=== PATIENT | female | born 1990 | race Caucasian/White ===

== ENCOUNTER 2020-04-16 04:09 | Inpatient (IN) ==
[2020-04-16] MEDS ORDERED: OXYTOCIN 30 UNITS/500 ML BAG IV PRN ×3 (04:59→15:54)
[2020-04-16 05:15] LABS: Hematocrit (blood only) 40.6 % (37-47); Hemoglobin 13.7 g/dL (12.0-16.0); Mean Corpuscular Hemoglobin 28.9 pg (25-34); Mean Corpuscular Volume 85.7 fL (80-100); Mean Platelet Volume 11.3 fL (7.4-10.4); Platelet Count 190 K/uL (130-400); RDW Coefficient of Variation 14.1 % (11.5-14.5); RDW Standard Deviation 43.8 fL (36.4-46.3); Red Blood Count 4.74 M/uL (4.2-5.4); White Blood Count 9.08 K/uL (4.8-10.8)
[2020-04-16 05:42] LABS: Mean Corpuscular Hgb Conc 33.7 g/dL (32-36)
--- NOTE | 2020-04-16 09:56 | Obstetrical Progress Note ---
Date of Service April 16, 2020 Assessment & Plan Admission and Anticipated Discharge Date Admission Date: April 16, 2020 Physical Exam Genitourinary: no vaginal lesions, no adnexal mass normal external appearance OB Exam Abdomen: + vertex, + estimated weight and + irregu lar contractions Manual OB Exam: + cervical dilation 4 cm and + cervical effacement 70% OB Exam Monitor Tracing: + external FHT monitor used, + category I and + normal FHT variability Irregular contractions will start Oxytocin Results & Data ([facility]) Vital Signs (Past 12 Hours) Vital Signs Temp Pulse Resp BP 04/16/20 07:44 36.9 C 04/16/20 07:32 72 123/87 04/16/20 04:35 36.8 C 04/16/20 04:29 74 131/75
[2020-04-16] MEDS: LACTATED RINGER'S 1,000 ML IV PRN ×2 (10:27→11:56)
[2020-04-16] MEDS ORDERED: ePHEDrine sulfate 50 MG/ML AMP ONE (10:57)
[2020-04-16] MEDS ORDERED: fentaNYL citrate 100 MCG/2 ML VIAL ONE (10:58)
[2020-04-16] MEDS ORDERED: BUPIVACAINE 0.25% 30 ML VIAL ONE (10:58)
[2020-04-16] MEDS ORDERED: fentaNYL 2MCG/ML ROPIV 1.25MG/ML 100 ML BAG EPI ONE (10:58)
--- NOTE | 2020-04-16 11:50 | Anesthesiology Consultation ---
Date of Service April 16, 2020 Assessment & Plan Chart Review Chart Review: Acceptable Risk for Surgery, Patient NOT seen in Pre Admission Testing and Acceptable Risk for Labor Epidural Consults Requested none ASA ASA2 Proposed Anesthesia Anesthesia Type: Labor Epidural and CSE Risk / Benefits Reviewed With: PT / POA / Parent / Guardian, Accepts Plan and Informed Consent Obtained History Height/Weight Height: 5 ft 2 in Weight: 71.668 kg Allergies Allergy/AdvReac Type Severity Reaction Status Date / Time No Known Allergies Allergy Verified 04/16/20 04:34 Medications Home Medications Medication Instructions Recorded Confirmed Last Taken PNV [id number]#[id number] fumarate-FA 1 tab PO DAILY 06/12/19 04/16/20 04/15/20 [] Active Medications Generic Name Dose Route Start Last Admin Trade Name Freq PRN Reason Stop Dose Admin Lactated Ringer's 1,000 mls @ 125 mls/hr 04/16/20 04:59 04/16/20 11:07 Lr IV 04/18/20 04:58 999 mls/hr .Q8H PRN Infusion L&D Protocol Protocol Oxytocin 30 units in 500 mls @ 2 mls/hr 04/16/20 10:20 04/16/20 11:20 Pitocin IV 04/18/20 10:19 0.12 units/hr .Q24H PRN 2 mls/hr Labor Induction/Augmentation Titration Protocol 0.12 UNITS/HR NPO Date Last Intake of Fluids: 04/16/20 Time Last Intake of Fluids: 10:00 Date Last Intake of Solids: 04/15/20 Time Last Intake of Solids: 18:00 Past Medical History Medical History Delivery of twins, both live Vaginal delivery Exercise / Class Metabolic Activity II 4-5 Yardwork/Stairs/Walk up hill Past Surgical History Surgical History Hx of tonsillectomy Past Anesthesia History No Hx of Anesthesia Complications and No Family Hx of Anesthesia Complications History of PONV No Hx of PONV and No Hx of Motion Sickness Social History Smoking Status: Never smoker Hx Alcohol Use: No Hx Substance Use: No substance use type: does not use Physical Exam Vital Signs Last Vital Signs Temp 36.9 C 04/16/20 07:44 Pulse 70 04/16/20 11:27 Resp 16 04/16/20 07:44 BP 120/74 04/16/20 11:27 Constitutional + obese ENMT Mouth: no dentition abnormality Thyromental Distance: < 3.5 Finger Breadths Mallampati Class: II Neck normal visual inspection and trachea midline; neck extension not limited Respiratory normal respiratory effort Auscultation: lungs clear to auscultation bilaterally Cardiovascular Rate/Rhythm: regular rate and regular rhythm Heart Sounds: no murmur Vessels: no carotid bruit Musculoskeletal Spine: lumbar spine normal to inspection; normal cervical ROM Neurologic moves all extremities Motor/Sensory: no sensory deficit Psychiatric Orientation: alert and oriented x 3 Testing Laboratory Results 04/16/20 05:08
[2020-04-16] MEDS ORDERED: ePHEDrine sulfate 50 MG/ML AMP IV PRN (12:13)
[2020-04-16] MEDS ORDERED: fentaNYL 2MCG/ML ROPIV 1.25MG/ML 100 ML BAG EPI PRN (12:13)
[2020-04-16] MEDS ORDERED: ONDANSETRON INJ 2 MG/ML 2 ML VIAL IV PRN (12:13)
[2020-04-16] MEDS ORDERED: NALOXONE HCL 1 MG in SODIUM CHLORIDE 0.9% 1000ML 1,000 ML IV PRN (12:13)
[2020-04-16] MEDS ORDERED: PROMETHAZINE HCL 25 MG in SODIUM CHLORIDE 0.9% 50 ML IV PRN (12:13)
[2020-04-16] MEDS ORDERED: NALOXONE HCL 0.4 MG/1 ML VIAL/CARP IV PRN (12:13)
[2020-04-16] MEDS ORDERED: DiphenhydrAMINE HCL 50 MG/ML VIAL IV PRN (12:13)
--- NOTE | 2020-04-16 13:02 | Obstetrical Progress Note ---
Date of Service April 16, 2020 Assessment & Plan Admission and Anticipated Discharge Date Admission Date: April 16, 2020 Physical Exam Genitourinary: Manual OB Exam: + cervical dilation 6 cm, + cervical effacement 80%, + station -2 and + amniotic fluid (AROM with Amni-hook clear fluid) clear OB Exam Monitor Tracing: + external FHT monitor used, + category I and + normal FHT variability Results & Data ([facility]) Vital Signs (Past 12 Hours) Vital Signs Temp Pulse Resp BP Pulse Ox 04/16/20 12:56 65 100 04/16/20 12:54 63 111/69 04/16/20 12:51 62 117/78 100 04/16/20 12:46 49 L 99 04/16/20 12:44 63 114/75 04/16/20 12:41 55 L 99 04/16/20 12:39 59 L 111/71 04/16/20 12:36 68 98 04/16/20 12:33 59 L 116/73 04/16/20 12:31 56 L 120/72 100 04/16/20 12:29 57 L 113/68 04/16/20 12:27 63 114/69 04/16/20 12:26 64 100 04/16/20 12:25 59 L 111/63 04/16/20 12:23 64 113/68 04/16/20 12:21 57 L 116/68 99 04/16/20 12:19 63 117/72 04/16/20 12:17 65 115/74 04/16/20 12:16 64 99 04/16/20 12:15 74 126/83 04/16/20 12:13 64 113/62 04/16/20 12:11 63 119/66 98 04/16/20 12:09 73 115/73 04/16/20 12:07 71 128/77 04/16/20 12:06 69 99 04/16/20 12:01 63 100 04/16/20 11:56 74 100 04/16/20 11:51 78 100 04/16/20 11:27 70 120/74 04/16/20 10:27 69 119/74 04/16/20 07:44 36.9 C 16 04/16/20 07:32 72 123/87 04/16/20 04:35 36.8 C 16 04/16/20 04:29 74 131/75
--- NOTE | 2020-04-16 15:01 | Obstetrical Progress Note ---
Date of Service April 16, 2020 Assessment & Plan Admission and Anticipated Discharge Date Admission Date: April 16, 2020 Physical Exam Genitourinary: Manual OB Exam: + cervical dilation 10 cm, + cervical effacement 100%, + station 0 and + amniotic fluid clear OB Exam Monitor Tracing: + external FHT monitor used, + external uterine monitor used, + category I and + normal FHT variability will start to push Results & Data ([facility]) Vital Signs (Past 12 Hours) Vital Signs Temp Pulse Resp BP Pulse Ox 04/16/20 14:56 61 100 04/16/20 14:51 55 L 100 04/16/20 14:47 61 115/62 04/16/20 14:46 57 L 100 04/16/20 14:41 66 99 04/16/20 14:36 59 L 100 04/16/20 14:31 69 116/63 100 04/16/20 14:26 60 100 04/16/20 14:21 65 100 04/16/20 14:16 58 L 113/62 99 04/16/20 14:11 61 99 04/16/20 14:06 60 99 04/16/20 14:01 53 L 100 04/16/20 14:00 16 04/16/20 13:59 57 L 106/60 04/16/20 13:56 56 L 99 04/16/20 13:54 60 109/64 04/16/20 13:51 61 100 04/16/20 13:50 60 119/67 04/16/20 13:46 54 L 100 04/16/20 13:44 73 113/66 04/16/20 13:41 58 L 115/64 99 04/16/20 13:36 54 L 99 04/16/20 13:35 52 L 122/67 04/16/20 13:31 57 L 99 04/16/20 13:29 56 L 118/62 04/16/20 13:26 55 L 100 04/16/20 13:24 51 L 117/60 04/16/20 13:21 57 L 120/59 L 100 04/16/20 13:16 54 L 100 04/16/20 13:15 53 L 16 117/72 04/16/20 13:11 55 L 100 04/16/20 13:09 54 L 120/68 04/16/20 13:06 58 L 100 04/16/20 13:05 52 L 116/65 04/16/20 13:01 61 120/67 99 04/16/20 13:00 37.0 C 16 04/16/20 12:56 65 100 04/16/20 12:54 63 111/69 04/16/20 12:51 62 117/78 100 04/16/20 12:46 49 L 99 04/16/20 12:45 16 04/16/20 12:44 63 114/75 04/16/20 12:41 55 L 99 04/16/20 12:39 59 L 111/71 04/16/20 12:36 68 98 04/16/20 12:33 59 L 116/73 04/16/20 12:31 56 L 120/72 100 04/16/20 12:30 18 04/16/20 12:29 57 L 113/68 04/16/20 12:27 63 114/69 04/16/20 12:26 64 100 04/16/20 12:25 59 L 111/63 04/16/20 12:23 64 113/68 04/16/20 12:21 57 L 116/68 99 04/16/20 12:19 63 117/72 04/16/20 12:17 65 115/74 04/16/20 12:16 64 99 04/16/20 12:15 74 16 126/83 04/16/20 12:13 64 113/62 04/16/20 12:11 63 119/66 98 04/16/20 12:09 73 115/73 04/16/20 12:07 71 128/77 04/16/20 12:06 69 99 04/16/20 12:01 63 100 04/16/20 11:56 74 100 04/16/20 11:51 78 100 04/16/20 11:27 70 120/74 04/16/20 11:11 36.9 C 04/16/20 10:27 69 119/74 04/16/20 07:44 36.9 C 16 04/16/20 07:32 72 123/87 04/16/20 04:35 36.8 C 16 04/16/20 04:29 74 131/75
--- NOTE | 2020-04-16 15:27 | Delivery Summary ---
Vaginal Delivery Summary Date of Service April 16, 2020 Vaginal Delivery Summary Delivery Note live female over intact perineum with delayed cord clamping and nuchal cord x1 reduced at delivery. Apgars 8/9 weight pending. Cord blood obtained followed by spontaneous delivery of intact placenta. No tears. EBL 200 ml. Final sponge and instrument count are correct. Mom and baby stable.
[2020-04-16] MEDS ORDERED: DIPHTHERIA/TETANUS/PERTUSSIS 0.5 ML SYR/VIAL IM ONE (15:54)
[2020-04-16] MEDS ORDERED: HYDROCORTISONE ACETATE 25 MG SUPP PR PRN (15:54)
[2020-04-16] MEDS ORDERED: SUPERCREAM 0.870% 15 GM JAR EXT PRN (15:54)
[2020-04-16] MEDS ORDERED: bisacodyL 10 MG SUPP PR PRN (15:54)
[2020-04-16] MEDS ORDERED: ACETAMINOPHEN 325 MG TAB PO PRN (15:54)
[2020-04-16] MEDS ORDERED: BENZOCAINE 20% AER SPR 82.5 GM CAN EXT PRN (15:54)
--- NOTE | 2020-04-16 16:53 | Anesthesia Procedure Note ---
Date of Service April 16, 2020 Anesthesia Post Epidural Note Vital Signs Vital Signs: Temp Pulse Resp BP Pulse Ox 37.0 C 75 16 113/64 100 04/16/20 15:01 04/16/20 16:50 04/16/20 15:01 04/16/20 16:50 04/16/20 15:11 Pain Intensity Bilateral Abdomen: Pain Intensity: 5 Notes Mental Status: alert / awake / arousable Nausea / Vomiting: adequately controlled Pain: adequately controlled Airway Patency, RR, SpO2: stable & adequate BP & HR: stable & adequate Hydration State: stable & adequate Neuraxial Anesthesia: was administered and sensory block is resolving Anesthetic Complications: no major complications apparent Epidural: Removed without complications and With tip intact
[2020-04-16] MEDS: IBUPROFEN 600 MG TAB PO PRN ×2 (18:22→21:50)
[2020-04-16] MEDS: DOCUSATE SODIUM 100 MG CAP PO SCH (21:50)
[2020-04-17] MEDS: IBUPROFEN 600 MG TAB PO PRN ×3 (03:31→12:22)
[2020-04-17 07:14] LABS: Hematocrit (blood only) 37.7 % (37-47); Hemoglobin 12.7 g/dL (12.0-16.0); Mean Corpuscular Hemoglobin 28.3 pg (25-34); Mean Corpuscular Hgb Conc 33.7 g/dL (32-36); Mean Corpuscular Volume 84.2 fL (80-100); Mean Platelet Volume 10.9 fL (7.4-10.4); Platelet Count 162 K/uL (130-400); RDW Coefficient of Variation 14.2 % (11.5-14.5); RDW Standard Deviation 43.7 fL (36.4-46.3); Red Blood Count 4.48 M/uL (4.2-5.4); White Blood Count 11.06 K/uL (4.8-10.8)
[2020-04-17] MEDS ORDERED: PRENATAL VITAMIN 1 TAB PO SCH (08:00)
[2020-04-17] MEDS: DOCUSATE SODIUM 100 MG CAP PO SCH (08:21)
[2020-04-17] MEDS ORDERED: NON-FORMULARY MEDICATION (Pnv Cmb#95-Ferrous Fumarate-Fa [Prenatal] 1 TAB) PO SCH (09:00)
--- NOTE | 2020-04-17 10:57 | Obstetrical Progress Note ---
Date of Service April 17, 2020 Assessment & Plan Admission and Anticipated Discharge Date Admission Date: April 16, 2020 Subjective Patient is seen and examined. She feels well, no complaints. Ambulating without dizziness Voiding without difficulty Tolerating regular diet with out N&V Bleeding is minimal No fever/ chills/ CP/ SOB/ N&V/ Leg pain Breast feeding without problems Vital Signs Temp Pulse Resp BP Pulse Ox 04/17/20 07:55 37 C 66 18 125/84 97 04/17/20 03:40 36.8 C 69 18 120/79 98 04/16/20 23:20 36.9 C 72 18 108/64 97 Lab Results 04/16/20 04/17/20 Range/Units 05:08 07:02 WBC 9.08 11.06 H (4.8-10.8) K/uL RBC 4.74 4.48 (4.2-5.4) M/uL Hgb 13.7 12.7 (12.0-16.0) g/dL Hct 40.6 37.7 (37-47) % MCV 85.7 84.2 (80-100) fL MCH 28.9 28.3 (25-34) pg MCHC 33.7 33.7 (32-36) g/dL RDW Std Deviation 43.8 43.7 (36.4-46.3) fL RDW Coeff of Jessica 14.1 14.2 (11.5-14.5) % Plt Count 190 162 (130-400) K/uL MPV 11.3 H 10.9 H (7.4-10.4) fL PE: General: Alert, orientedx3, NAD Abd: soft, NT, fundus firm, below Umbilicus Perineum intact, Lochia rubra minimal Ext; NT, no edema AP: 30 yo s/p , ppd# 1 VSS Afebrile doing well Continue routine care All questions were answered Desires d/c this afternoon D/C home , f/u in office Results & Data ([facility]) Vital Signs (Past 12 Hours) Vital Signs Temp Pulse Resp BP Pulse Ox 04/17/20 07:55 37 C 66 18 125/84 97 04/17/20 03:40 36.8 C 69 18 120/79 98 04/16/20 23:20 36.9 C 72 18 108/64 97
[2020-04-17] MEDS ORDERED: bisacodyL 5 MG TABEC PO SCH (20:00)
== END 2020-04-17 16:45 | disposition home or self-care (01) | DRG 807 ==
LOC: OPB 04:09 → 4S1 04:10 → 4N 18:16